=== PATIENT | male | born 1975 | race Caucasian/White ===

== ENCOUNTER 2016-11-28 02:32 | Emergency (ER) | payer SELFPAY ==
[~2016-11-28] VITALS: Ht 180.3 cm; Wt 75.0 kg
[2016-11-28 02:56] VITALS: BP 111/70; PULSE 93; RESP 16; TEMP 98.9; O2SAT 94
[2016-11-28] MEDS ORDERED: ADDE30TA PO (03:04)
[2016-11-28] MEDS ORDERED: ceFAZolin 2 GM PREMIX 50 ML IV ONE (03:15)
[2016-11-28] MEDS ORDERED: DIPHTH/TETANUS/ACEL PERTUSSIS (BOOSTER) 0.5 ML VIAL/PFS IM ONE (03:15)
--- NOTE | 2016-11-28 03:18 | PD ---
HPI Chief Complaint: Fall Time Seen by Provider: 03:00 Travel History International Travel<30 days: No Contact w/Intl Traveler<30days: No Traveled to known affect area: No History of Present Illness HPI The patient is a 41 year old male who presents to the [facility] emergency department with a history of tripping and falling outside of a bar prior to arrival. The patient is unsure whether he had loss of consciousness. He reports that he has been drinking alcohol this evening. The patient was noted to have an area of swelling to the right side of his forehead with an overlying abrasion. The patient reports that his tetanus was last updated over 5 years ago. The patient was brought in by ambulance services. The patient was given Zofran 4 mg IV prior to arrival along with 800 mL of normal saline. The patient reports having a headache. He denies having any neck pain or back pain. He denies having any numbness or tingling to his extremities. He denies having any abdominal pain, chest pain, chest pressure, or shortness of breath. [facility] Past Medical History Narrative Medical The patient's past medical history is significant for attention deficit disorder. ADD: Yes Tetanus Vaccination: < 5 Years Influenza Vaccination: No Past Surgical History Narrative Surgical The patient's past surgical history is reportedly none. Surgical History: No Previous Surgery Social History Alcohol Use: Yes (heavy alcohol use every 3 days) Tobacco Use: Yes (one half pack per day) Substance Use: No Allergies-Medications (Allergen,Severity, Reaction): Coded Allergies: Tramadol (Verified Allergy, Mild, Hives, 11/28/16) Reported Meds & Prescriptions Reported Meds & Active Scripts Active Reported Adderall (Amphetamine-Dextroamphetamine) 30 Mg Tab 30 Mg PO BID Avoid late evening doses. Space doses at least 4 to 6 hours if more than once/day dosing. Review of Systems Except as stated in HPI: all other systems reviewed are Neg General / Constitutional: No: Fever Eyes: No: Visual changes HENT: Positive: Headaches, No: Rhinorrhea, Congestion, Neck Stiffness, Neck Pain Cardiovascular: No: Chest Pain or Discomfort Respiratory: No: Shortness of Breath Gastrointestinal: No: Abdominal Pain Genitourinary: No: Dysuria Musculoskeletal: No: Pain Skin: No Rash Neurologic: Positive: Headache, Slurred Speech, No: Weakness, Focal Abnormalities, Change in Mentation, Sensory Disturbance Psychiatric: Positive: Substance Abuse, No: Depression Endocrine: No: Polydipsia Hematologic/Lymphatic: No: Easy Bruising Physical Exam Narrative General: The patient is a well-developed well-nourished male in no acute distress. The patient is brought in on a back board in full c-spine immobilization by emergency services. Head and Neck exam: Head is normocephalic with evidence of trauma to the right side of the forehead with a forehead contusion with overlying abrasion noted.. No facial bone tenderness or increased facial bone mobility noted on palpation. Eyes: EOMI, pupils are equal round and reactive to light. Nose: Midline septum with pink mucous membranes Mouth: Dentition unremarkable. Moist mucus membranes. Posterior oropharynx is not erythematous. No tonsillar hypertrophy. Uvula midline. Airway patent. Neck: The patient is immobilized in a cervical collar. No tracheal deviation. The trachea appears midline. Cardiovascular: Regular rate and rhythm without murmurs, gallops, or rubs. No pulse deficit to the extremities. Lungs: Clear to auscultation bilaterally. No wheezes, rhonchi, or rales. No chest wall tenderness to palpation. No erythema or ecchymosis noted. No crepitus , step off, or flail segment noted. Abdomen: Soft, without tenderness to palpation in all 4 quadrants of the abdomen. No guarding, rebound, or rigidity. No erythema or ecchymosis noted. Extremities: No instability or pain noted on pelvic rock. No clubbing, cyanosis , or edema. 2+ pulses in all 4 extremities. No extremity tenderness or deformity noted on palpation or passive/ active range of motion. Back: The patient was log rolled off of the back board. No spinous process tenderness to palpation. No stepoff or crepitus noted. No costovertebral angle tenderness to palpation. No erythema or ecchymosis. Neurologic Exam: Cranial nerves 2-12 were intact on exam. Strength is 5/5 in all 4 extremities. No sensory deficits noted. The patient is oriented to person , place, time, and situation. The patient has slurred speech and an odor of alcohol about him. Skin Exam: No rash noted. Data Data Last Documented VS Vital Signs Date Time Temp Pulse Resp B/P Pulse Ox O2 Delivery O2 Flow Rate FiO2 11/28/16 03:21 18 98 Room Air 11/28/16 02:59 93 11/28/16 02:56 98.9 111/[address] Brain W/O Iv Contrast(Rout) (11/28/16 03:02) Ct Cerv Spine W/O Contrast (11/28/16 03:02) Bcsn-Bnf-Lmhbkv (Booster) Inj (Boostrix (11/28/16 03:15) Cefazolin 2 Gm Premix (Ancef 2 Gm Premix (11/28/16 03:15) Complete Blood Count With Diff (11/28/16 03:10) Basic Metabolic Panel (Bmp) (11/28/16 03:10) Chest, Single Ap (11/28/16 03:10) Iv Access Insert/Monitor (11/28/16 03:10) Ecg Monitoring (11/28/16 03:10) Oximetry (11/28/16 03:10) Pelvis, Ap Only (Routine) (11/28/16 03:10) Labs Laboratory Tests Test 11/28/16 03:18 White Blood Count 9.0 TH/MM3 Red Blood Count 5.35 MIL/MM3 Hemoglobin 15.1 GM/DL Hematocrit 45.0 % Mean Corpuscular Volume 84.2 FL Mean Corpuscular Hemoglobin 28.2 PG Mean Corpuscular Hemoglobin 33.4 % Concent Red Cell Distribution Width 12.7 % Platelet Count 261 TH/MM3 Mean Platelet Volume 7.4 FL Neutrophils (%) (Auto) 60.1 % Lymphocytes (%) (Auto) 28.1 % Monocytes (%) (Auto) 8.0 % Eosinophils (%) (Auto) 3.0 % Basophils (%) (Auto) 0.8 % Neutrophils # (Auto) 5.4 TH/MM3 Lymphocytes # (Auto) 2.5 TH/MM3 Monocytes # (Auto) 0.7 TH/MM3 Eosinophils # (Auto) 0.3 TH/MM3 Basophils # (Auto) 0.1 TH/MM3 CBC Comment DIFF FINAL Differential Comment Sodium Level 147 MEQ/L Potassium Level 3.5 MEQ/L Chloride Level 113 MEQ/L Carbon Dioxide Level 27.3 MEQ/L Anion Gap 7 MEQ/L Blood Urea Nitrogen 9 MG/DL Creatinine 0.90 MG/DL Estimat Glomerular Filtration 94 ML/MIN Rate Random Glucose 96 MG/DL Calcium Level 8.1 MG/DL MDM Medical Decision Making Medical Screen Exam Complete: Yes Emergency Medical Condition: Yes Medical Record Reviewed: Yes Interpretation(s) Last Impressions Pelvis X-Ray 11/28/16309 Signed Impressions: Service Date/Time: Monday, November 28, 2016 03:31 - CONCLUSION: No acute fracture. Teddy Block MD Chest X-Ray 11/28/16309 Signed Impressions: Service Date/Time: Monday, November 28, 2016 03:29 - CONCLUSION: No acute disease. Teddy Block MD Cervical Spine CT 11/28/16301 Signed Impressions: Service Date/Time: Monday, November 28, 2016 03:40 - CONCLUSION: No fracture or subluxation. Teddy Block MD Differential Diagnosis Intracranial trauma, versus cervical spine trauma, versus intrathoracic injury, versus pelvic injury Narrative Course During the course of the patients emergency department visit, the patients history, examination, and differential diagnosis were reviewed with the patient. The patient had IV access obtained and blood work sent for analysis. The patient was placed on a school bus monitor with oximetry and blood pressure monitoring. A CT scan of the head and neck was ordered, chest x-ray, pelvic x- ray was ordered. The patient was initially provided Ancef 2 g IV, an update of his tetanus was provided. The patients laboratory studies were reviewed and remarkable for a CBC that is within normal limits, BMP is remarkable for sodium of 147, chloride 113, calcium 8.1. Radiology studies were reviewed and remarkable for a chest x-ray, pelvic x-ray that are unremarkable, CT scan of the head and neck that were read as negative for acute abnormality by the reading radiologist. The patient will be observed in the emergency department fully is improvement in his mentation and is able to walk without assistance or has a ride available home due to his alcohol intoxication. The patient is resting comfortably and feels better, is alert and in no distress. The patients results and examination findings were discussed with the patient. The repeat examination is unremarkable and benign. The history, exam, diagnostic testing, and current condition do not suggest any significant pathology to warrant further testing, continued ED treatment, admission, or surgical evaluation at this point. The vital signs have been stable. The patient does not have uncontrollable pain, intractable vomiting, or other significant symptoms. The patient's condition is stable and appropriate for discharge. The patient will pursue further outpatient evaluation with a primary care physician or other designated or consulting physician as indicated in the discharge instructions. The patient expressed understanding and was agreeable with this plan. Diagnosis Primary Impression: Fall Qualified Code: W19.XXXA - Fall, initial encounter Additional Impressions: Head injury Qualified Code: S09.90XA - Head injury, initial encounter Alcohol intoxication Qualified Code: F10.929 - Alcohol intoxication, with unspecified complication Referrals: Primary Care Physician 2 days Patient Instructions: Alcohol Intoxication (ED), General Instructions, Head Injury (ED) Med/Other Pt SpecificInfo: No Change to Meds Disposition: 01 DISCHARGE HOME Condition: Stable Krysta Zamorano MD Nov 28, 2016 03:18
[2016-11-28 03:21] VITALS: RESP 18; O2SAT 98
[2016-11-28 03:36] LABS: AUTOMATED NEUTROPHIL # 5.4 TH/MM3 (1.8-7.7); BASOPHIL # 0.1 TH/MM3 (0-0.2); BASOPHIL % 0.8 % (0.0-2.0); EOSINOPHIL # 0.3 TH/MM3 (0-0.4); HEMO FLAGS DIFF FINAL; LYMPH % 28.1 % (9.0-44.0); LYMPHOCYTE # 2.5 TH/MM3 (1.0-4.8); MEAN CELL VOLUME 84.2 FL (80.0-100.0); MEAN CORPUSCULAR HEMOGLOBIN 28.2 PG (27.0-34.0); MEAN CORPUSCULAR HGB CONC 33.4 % (32.0-36.0); NEUT % 60.1 % (16.0-70.0); PLATELET COUNT 261 TH/MM3 (150-450); RED BLOOD COUNT 5.35 MIL/MM3 (4.50-5.90); RED CELL DISTRIBUTION WIDTH 12.7 % (11.6-17.2)
[2016-11-28 03:56] LABS: BICARBONATE 27.3 MEQ/L (21.0-32.0); POTASSIUM 3.5 MEQ/L (3.5-5.1)
--- NOTE | 2016-11-28 04:21 | RADRPT ---
EXAM DATE/TIME: 11/28/2016 03:40 [facility] COMPARISON: No previous studies available for comparison. INDICATIONS : Trauma, fall. ETOH. RADIATION DOSE: 36.91 CTDIvol (mGy) MEDICAL HISTORY : None SURGICAL HISTORY : None. ENCOUNTER: Initial ACUITY: 1 day PAIN SCALE: 0/10 LOCATION: cranial TECHNIQUE: Multiple contiguous axial images were obtained of the head. Using automated exposure control and adj ustment of the mA and/or kV according to patient size, radiation dose was kept as low as reasonably a chievable to obtain optimal diagnostic quality images. DICOM format image data is available electro nically for review and comparison. FINDINGS: CEREBRUM: The ventricles are normal for age. No evidence of midline shift, mass lesion, hemorrhage or acute in farction. No extra-axial fluid collections are seen. POSTERIOR FOSSA: The cerebellum and brainstem are intact. The 4th ventricle is midline. The cerebellopontine angle i s unremarkable. EXTRACRANIAL: The visualized portion of the orbits is intact. SKULL: The calvaria is intact. No evidence of skull fracture. CONCLUSION: No acute intracranial disease. Teddy Block MD on November 28, 2016 at 4:19 Board Certified Radiologist. This report was verified electronically.
--- NOTE | 2016-11-28 04:22 | RADRPT ---
EXAM DATE/TIME: 11/28/2016 03:40 [facility] COMPARISON: No previous studies available for comparison. INDICATIONS : Trauma, fall. ETOH. RADIATION DOSE: 19.85 CTDIvol (mGy) MEDICAL HISTORY : None SURGICAL HISTORY : None. ENCOUNTER: Initial ACUITY: 1 day PAIN SCALE: 0/10 LOCATION: neck TECHNIQUE: Volumetric scanning of the cervical spine was performed. Multiplanar reconstructions in the sagittal, coronal and oblique axial planes were performed. Using automated exposure control and adjustment o f the mA and/or kV according to patient size, radiation dose was kept as low as reasonably achievable to obtain optimal diagnostic quality images. DICOM format image data is available electronically f or review and comparison. FINDINGS: VERTEBRAE: Normal vertebral body height. ALIGNMENT: No evidence of subluxation. C2-C3: The bony spinal canal is normal in size. No evidence of disc bulge or herniation. The neural forami na are bilaterally patent. C3-C4: The bony spinal canal is normal in size. No evidence of disc bulge or herniation. The neural forami na are bilaterally patent. C4-C5: The bony spinal canal is normal in size. No evidence of disc bulge or herniation. The neural forami na are bilaterally patent. C5-C6: The bony spinal canal is normal in size. No evidence of disc bulge or herniation. The neural forami na are bilaterally patent. C6-C7: The bony spinal canal is normal in size. No evidence of disc bulge or herniation. The neural forami na are bilaterally patent. C7-T1: The bony spinal canal is normal in size. No evidence of disc bulge or herniation. The neural forami na are bilaterally patent. CONCLUSION: No fracture or subluxation. Teddy Block MD on November 28, 2016 at 4:20 Board Certified Radiologist. This report was verified electronically.
--- NOTE | 2016-11-28 04:25 | RADRPT ---
EXAM DATE/TIME: 11/28/2016 03:29 [facility] COMPARISON: No previous studies available for comparison. INDICATIONS : Fall. MEDICAL HISTORY : None. SURGICAL HISTORY : None. ENCOUNTER: Initial ACUITY: 1 day PAIN SCORE: 06/07 LOCATION: Bilateral chest FINDINGS: A single view of the chest demonstrates the lungs to be symmetrically aerated without evidence of mas s, infiltrate or effusion. The cardiomediastinal contours are unremarkable. Osseous structures are intact. CONCLUSION: No acute disease. Teddy lBock MD on November 28, 2016 at 4:23 Board Certified Radiologist. This report was verified electronically.
--- NOTE | 2016-11-28 04:26 | RADRPT ---
EXAM DATE/TIME: 11/28/2016 03:31 [facility] COMPARISON: No previous studies available for comparison. INDICATIONS : Fall. MEDICAL HISTORY : None. SURGICAL HISTORY : None. ENCOUNTER: Initial ACUITY: 1 day PAIN SCORE: 1/10 LOCATION: Bilateral pelvis FINDINGS: A single frontal view of the pelvis demonstrates no evidence of fracture. The bony pelvic ring is in tact. Bony mineralization is normal. The soft tissues are intact. CONCLUSION: No acute fracture. Teddy Block MD on November 28, 2016 at 4:24 Board Certified Radiologist. This report was verified electronically.
[2016-11-28 04:52] VITALS: BP 119/67; PULSE 76; RESP 18; O2SAT 100
== END 2016-11-28 05:13 | disposition home or self-care (01) ==
LOC: NEPC 02:32
DX: S09.90XA Unspecified injury of head, initial encounter (principal); Y90.9 Presence of alcohol in blood, level not specified; F10.929 Alcohol use, unspecified with intoxication, unspecified; F17.210 Nicotine dependence, cigarettes, uncomplicated; Z23 Encounter for immunization; W01.0XXA Fall on same level from slipping, tripping and stumbling without subsequent striking against object, initial encounter
CPT/HCPCS: 70450; 71010; 72125; 72170; 80048; 85025; 90471; 90715; 96365; 99285; J0690